=== PATIENT | female | born 1965 | race Caucasian/White ===

== ENCOUNTER 2017-07-01 13:53 | Emergency (ER) | payer OTHER ==
[~2017-07-01] VITALS: Ht 170.2 cm; Wt 79.4 kg
[2017-07-01] MEDS ORDERED: LEVOTHYROXINE50 MCG PO (14:01)
[2017-07-01] MEDS ORDERED: SIMVASTATIN20 MG PO (14:01)
[2017-07-01] MEDS ORDERED: NORCO 5-325 TA1 EACH PO (14:53)
[2017-07-09] MEDS ORDERED: PERCOCET 5-3251 EACH PO (11:40)
[2017-07-14] MEDS ORDERED: CLEOCIN HCL300 MG PO (06:19)
== END 2017-07-01 15:06 | disposition home or self-care (01) ==
LOC: ED 13:53
PROC: 2W3JX1Z Immobilization of Right Finger using Splint (ICD-10-PCS; principal; 2017-07-01)
DX: S62.304A Unspecified fracture of fourth metacarpal bone, right hand, initial encounter for closed fracture (principal); E78.00 Pure hypercholesterolemia, unspecified; E03.9 Hypothyroidism, unspecified; F17.200 Nicotine dependence, unspecified, uncomplicated; Z98.890 Other specified postprocedural states; Z79.899 Other long term (current) drug therapy; W22.09XA Striking against other stationary object, initial encounter
CPT/HCPCS: 29130; 73130; 99283

== ENCOUNTER 2017-07-14 08:45 | Day surgery (SDC) | payer OTHER ==
[~2017-07-14] VITALS: Ht 170.2 cm; Wt 77.1 kg
[~2017-07-14 08:45] MED LIST: CLEOCIN HCL300 MG PO; LEVOTHYROXINE50 MCG PO; NORCO 5-325 TA1 EACH PO; PERCOCET 5-3251 EACH PO; SIMVASTATIN20 MG PO
--- NOTE | 2017-07-14 10:39 | NUR ---
07/14/17 Romie9 Lauren Cruz REPORT FROM PSYCHIATRIC THERAPIST.
[2017-07-14] MEDS ORDERED: HYDROCODON-ACE1 EA11 PO (10:41)
--- NOTE | 2017-07-16 08:12 | OR ---
[facility] [address], [place] [address] Signed DATE OF PROCEDURE: 07/14/17 PREOPERATIVE DIAGNOSIS: Right 4th metacarpal fracture displaced. POSTOPERATIVE DIAGNOSIS: Right 4th metacarpal fracture displaced. PROCEDURE PERFORMED Open reduction and internal fixation, right 4th metacarpal. SURGEON: Nando Quach MD. SCREENER AND BLENDER Jayashree Beckett PA-C. Jayashree was present and critical for positioning, retraction, and wound closure. ANESTHESIA: General with block. TOURNIQUET TIME: 36 minutes. BLOOD LOSS: None. IMPLANTS: 1.5 mm Synthes white plate with screws. BRIEF HISTORY The patient is a 52-year-old female who suffered a fall and injured her hand. She had a displaced fairly comminuted right 4th metacarpal fracture. Risks and benefits of operative discussed with her and she elected to proceed. DESCRIPTION OF PROCEDURE Once consent was obtained, she was taken to the operating room. After adequate anesthesia, she was placed on the operating table. All downside pressure points well padded. A well-padded proximal arm tourniquet was placed. The arm was prepped and draped and exsanguinated using Esmarch bandage. The tourniquet was inflated to 200 mmHg. Standard dorsal approach through a 4 cm incision was taken through skin and subcutaneous tissue and centered over the metacarpal. The extensor tendons were identified, retracted and protect e d. The periosteum was incised and elevated. The fracture was reduced and clamped after distracting the finger a couple of millimeters. The plate was then fashioned to fit the metacarpal at the Y distally. The plate was held with 2 screws and checked using image intensifier. Fracture reduction and alignment were found to be satisfactory. All screw holes were drilled and appropriate length screws were placed. One screw was too long. I removed it and placed a 2 mm shorter screw. The final reduction plate placement and screw lengths were checked using image intensifier and Electronically Signed By: NANDO QUACH MD 07/16/17 0812 PATIENT NAME: YOUNG ELLIS OPERATIVE REPORT DATE OF : 61 PHYSICIAN: NANDO QUACH MD REPORT #: [id number] REPORT IS CONFIDENTIAL AND NOT TO BE RELEASED WITHOUT AUTHORIZATION [facility] [address], [place] [address] Signed found to be satisfactory. Wound was copiously irrigated with antibiotic solution. The periosteum was closed using 3-0 Monocryl. The skin was closed using 3-0 Prolene and Steri-Strips. Wound was dressed with Xeroform, 4 x 8, and an ulnar gutter splint. She tolerated procedure well. All sponge, needle, and instrument counts were correct. Nando Quach MD BA/Tonil /[id number] Electronically Signed By: NANDO QUACH MD 07/16/17 0812 PATIENT NAME: YOUNG ELLIS OPERATIVE REPORT DATE OF : 61 PHYSICIAN: NANDO QUACH MD REPORT #: [id number] REPORT IS CONFIDENTIAL AND NOT TO BE RELEASED WITHOUT AUTHORIZATION
== END 2017-07-14 11:45 | disposition home or self-care (01) ==
LOC: DS 08:45
PROVIDERS: Specialist
PROC: 0PSP04Z Reposition Right Metacarpal with Internal Fixation Device, Open Approach (ICD-10-PCS; principal; 2017-07-14 09:45)
DX: S62.324A Displaced fracture of shaft of fourth metacarpal bone, right hand, initial encounter for closed fracture (principal); W22.8XXA Striking against or struck by other objects, initial encounter; Z98.890 Other specified postprocedural states
CPT/HCPCS: 01830; 64417; 73120; 76942; C1713; J0690; J1885; J2250; J2405; J2704; J3010; J7120

== ENCOUNTER 2017-10-04 06:31 | Emergency (ER) | payer OTHER ==
[~2017-10-04] VITALS: Ht 170.2 cm; Wt 88.5 kg
[~2017-10-04 06:31] MED LIST changes: +HYDROCODON-ACE1 EA11 PO
[2017-10-04] MEDS ORDERED: NORCO 5-325 TA1 EACH PO (07:44)
== END 2017-10-04 08:05 | disposition home or self-care (01) ==
LOC: ED 06:31
DX: S52.124A Nondisplaced fracture of head of right radius, initial encounter for closed fracture (principal); E03.9 Hypothyroidism, unspecified; F17.200 Nicotine dependence, unspecified, uncomplicated; Z79.899 Other long term (current) drug therapy; V00.121A Fall from non-in-line roller-skates, initial encounter
CPT/HCPCS: 73080; 99283

== ENCOUNTER 2025-02-03 17:26 | Emergency (ER) | payer OTHER ==
[~2025-02-03] VITALS: Ht 170.2 cm; Wt 105.9 kg
[2025-02-03] MEDS ORDERED: PREMPRO 0.3 MG1 EACH PO (17:45)
[2025-02-03] MEDS ORDERED: CELEBREX50 MG PO (17:45)
[2025-02-03] MEDS ORDERED: LYRICA50 MG PO (17:46)
[2025-02-03] MEDS ORDERED: FLONASE ALLERG9.9 ML NAS (17:47)
[2025-02-03] MEDS ORDERED: CIPROFLOXACIN 0.3% 5 ML HOME.PACK OPTH ONE (20:00)
[2025-02-03 20:03] VITALS: BP 157/107
== END 2025-02-03 19:50 | disposition home or self-care (01) ==
LOC: ED 17:26
DX: H10.9 Unspecified conjunctivitis (principal); G43.909 Migraine, unspecified, not intractable, without status migrainosus; E03.9 Hypothyroidism, unspecified; F17.200 Nicotine dependence, unspecified, uncomplicated; Z79.890 Hormone replacement therapy; Z79.1 Long term (current) use of non-steroidal anti-inflammatories (NSAID); Z79.899 Other long term (current) drug therapy
CPT/HCPCS: 99283